=== PATIENT | female | born 1955 | race Caucasian/White ===

== ENCOUNTER → 2021-04-16 | Outpatient (CLI) | payer OTHER ==
--- NOTE | 2021-05-08 15:33 | RAD ---
EXAM: Bilateral screening mammogram. HISTORY: Routine screening. TECHNIQUE: Full-field digital craniocaudal and mediolateral oblique views of both breasts are obtaine d for evaluation. Computer aided detection was applied. COMPARISON: None available. This is a baseline exam. BREAST PARENCHYMAL DENSITY: Scattered. FINDINGS: There are bilateral retropectoral saline implants. There is a 1 cm dense nodular asymmetry in the upper right breast at middle depth on MLO view, no definite correlation on CC view. There is a possible 4 mm nodular asymmetry in the left breast about 2.5 cm from the nipple in the central to s lightly outer left breast on CC views. There are scattered calcifications in the left breast. No arch itectural distortion. IMPRESSION: Bilateral asymmetries. Recommend spot compression MLO view of the right breast and spot c ompression CC view of the left breast if possible, or bilateral ultrasound to further evaluate. BI-RADS Category 0: Incomplete: Need additional imaging evaluation. Mammography is the most sensitive method for finding small breast cancers, but it does not detect the m all and is not a substitute for careful clinical examination. A negative mammogram does not negate a clinically suspicious finding and should not result in delay in biopsying a clinically suspicious a bnormality. "Our facility is accredited by the [employer] mammography program." Electronically signed by: Darcy Hernandez MD (05/08/2021 3:30 PM) [facility]
== END ==
LOC: MAMMO 15:19
PROVIDERS: ATTEND Family Medicine
DX: Z12.31 Encounter for screening mammogram for malignant neoplasm of breast (principal); N63.10 Unspecified lump in the right breast, unspecified quadrant
CPT/HCPCS: 77067

== ENCOUNTER → 2021-04-30 | Outpatient (CLI) | payer OTHER ==
--- NOTE | 2021-04-30 11:26 | RAD ---
EXAM: DUAL ENERGY X-RAY ABSORPTIOMETRY (DEXA). HISTORY: Postmenopausal screening. FINDINGS: The lowest measured T-score is -1.4 in the right femoral neck, based on a bone mineral dens ity of 0.768 g/cm^2. Refer to the worksheets for full detail. There has been a 20.3 percent decrease in density of the right hip and 14.9 percent decrease in densi ty of the lumbar spine compared to a study performed 06/21/2012. IMPRESSION: 1. Low bone mass. Bone mineral density yields a T-score between -1.0 and -2.5. Fracture risk is incre ased. 2. FRAX report: Not calculated. 3. Significant interval decrease in bone mineral density compared to the prior study. METHODOLOGY: Dual energy x-ray absorptiometry was performed to measure bone mineral density. The foll owing analysis is based on the 2019 Official Positions of the International Society for Clinical Dens itometry: Measurements of the hips and the average of L1-L4 are preferred. When the spine and/or hip cannot be feasibly measured or interpreted, or in the setting of hyperparathyroidism, distal radial bone minera l density may be measured. The lumbar spine T-score is based on the average bone mineral density of L1-L4. In the setting of art ifact or anatomic abnormality, some lumbar levels may be excluded, and the remaining levels used for calculation. A single lumbar level is not used for diagnosis, and if only a single level is available for assessment, another anatomic site will be used to assign a diagnosis. The hip T-score is based on the bone mineral density measurement of the femoral neck or total proxima l femur of either side, whichever is lowest. Bilateral mean values are not used for diagnosis. The forearm T-score is derived from 33% of the distal radius of the nondominant forearm. Electronically signed by: Jeri Brown MD (04/30/2021 11:23 AM) [facility]
== END ==
LOC: DXRAD 10:24
PROVIDERS: ATTEND Family Medicine
DX: M85.88 Other specified disorders of bone density and structure, other site (principal)
CPT/HCPCS: 77080

== ENCOUNTER → 2021-06-05 | Outpatient (CLI) | payer OTHER ==
--- NOTE | 2021-06-05 14:36 | RAD ---
EXAM: Bilateral diagnostic mammogram; bilateral breast sonogram. HISTORY: 66-year-old female presents for evaluation of asymmetry within the right breast and nodulari ty within the left breast demonstrate on a mammogram dated 04/16/2021. TECHNIQUE: Spot compression views of both breasts are obtained. Sonographic imaging of both breasts t argeted to sites of mammographic nodularity and asymmetry was also performed. COMPARISON: 04/16/2021. BREAST PARENCHYMAL DENSITY: Level C - Heterogeneously dense. FINDINGS: The asymmetry of concern within the right breast appears to change configuration with the s pot compression image. No convincing residual mass or distortion is seen. There is a subglandular rig ht breast implant with infolding. There is a persistent circumscribed nodule within the 12:00 position of the left breast at anterior d epth with the additional mammographic images. There is no suspicious calcification. There is a subgla ndular left breast implant with infolding. Sonographic imaging of the right breast demonstrates no suspicious finding. Sonographic imaging of the left breast demonstrates a 6 mm complicated cyst or cluster of cysts at th e 12:00 position 3 cm from the nipple, corresponding with the mammographic finding of concern. This d emonstrates no suspicious blood flow or solid component. There is a tiny suspected lipoma within the superficial soft tissues of the left breast at the 6:00 position 3 cm from the nipple measuring 4 mm. IMPRESSION: 1. 6 mm benign complicated cyst or cluster of cysts at the 12:00 position of the left breast, corresp onding with the mammographic finding of concern. 2. No convincing persistent suspicious mammographic finding or sonographic finding within the right b reast. 3. BI-RADS Category 2: Benign finding(s). RECOMMENDATION: Annual mammography is recommended. If your mammogram demonstrates that you have dense breast tissue, which could hide abnormalities, and if you have other risk factors for breast cancer that have been identified, you might benefit from s upplemental screening tests that may be suggested by your ordering physician. Dense breast tissue, i n and of itself, is a relatively common condition. This information is not provided to cause undue c oncern, but rather to raise your awareness and to promote discussion with your physician regarding th e presence of other risk factors, in addition to dense breast tissue. A report of your mammography re sults will be sent to you and your physician. You should contact your physician if you have any ques tions or concerns regarding this report. Mammography is a sensitive method for finding small breast cancers, but it does not detect them all a nd is not a substitute for careful clinical examination. A negative mammogram does not negate a clin ically suspicious finding and should not result in delay in biopsying a clinically suspicious abnorma lity. PQRS compliance statement - Patient information was entered into a reminder system with a target due date for the next mammogram. "Our facility is accredited by the [employer] Mammography Program." Electronically signed by: Jeri Brown MD (06/05/2021 2:34 PM) [id number]
== END ==
LOC: MAMMO 14:44
PROVIDERS: ATTEND Family Medicine
DX: N63.21 Unspecified lump in the left breast, upper outer quadrant (principal); R92.8 Other abnormal and inconclusive findings on diagnostic imaging of breast
CPT/HCPCS: 77066; 76641-50